=== PATIENT | female | born 1985 | race Caucasian/White ===

== ENCOUNTER 2017-03-08 22:02 | Emergency (ER) | payer OTHER ==
[2017-03-08] MEDS ORDERED: IBUPROFEN 600 MG TAB PO ONE ×2 (22:38→22:39)
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
[2017-03-08 23:23] VITALS: BP 138/89; PULSE 76; RESP 16; TEMP 98.8; O2SAT 97
== END 2017-03-08 23:23 | disposition home or self-care (01) ==
PROC: 0RS Upper Joints, Reposition (ICD-10-PCS; principal; 2017-03-08)
DX: S63.296A Dislocation of distal interphalangeal joint of right little finger, initial encounter (principal); V18.0XXA Pedal cycle driver injured in noncollision transport accident in nontraffic accident, initial encounter; Y99.8 Other external cause status; Y93.55 Activity, bike riding
CPT/HCPCS: L3925